=== PATIENT | male | born 1990 | race African-American/Black ===

== ENCOUNTER 2018-09-11 12:55 | Emergency (ER) | payer SELFPAY ==
[~2018-09-11] VITALS: Ht 185.4 cm; Wt 93.0 kg
[2018-09-11 13:34] VITALS: BP 113/74
== END 2018-09-11 14:23 | disposition home or self-care (01) ==
LOC: ER 12:55
DX: J06.9 Acute upper respiratory infection, unspecified (principal); F12.10 Cannabis abuse, uncomplicated
CPT/HCPCS: 99281; A6403; Z7502